=== PATIENT | male | born 1980 | race Hispanic/Latino ===

== ENCOUNTER 2021-10-09 17:00 | Emergency (ER) | payer OTHER, SELFPAY ==
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
[2021-10-09 17:18] VITALS: BP 141/100; PULSE 70; RESP 20; TEMP 37.2; O2SAT 100
[2021-10-09 17:19] VITALS: BP 141/100; PULSE 70; RESP 20; TEMP 37.2; O2SAT 100
== END 2021-10-09 17:35 | disposition home or self-care (01) ==
LOC: EXPGOSH 17:10
PROVIDERS: Emergency Provider Nurse Practitioner Family
DX: S39.012A Strain of muscle, fascia and tendon of lower back, initial encounter (principal); V43.52XA Car driver injured in collision with other type car in traffic accident, initial encounter; E03.9 Hypothyroidism, unspecified; G40.909 Epilepsy, unspecified, not intractable, without status epilepticus
CPT/HCPCS: 99213; G0463